=== PATIENT | female | born 1965 | race Caucasian/White ===

== ENCOUNTER 2018-03-02 18:43 | Emergency (ER) | payer OTHER ==
[2018-03-02] MEDS ORDERED: Rocephin 1000 MG INJ IM STA (19:11)
[2018-03-02] MEDS ORDERED: BACTRIM DS TABLET PO ONE ×2 (19:11→19:29)
[2018-03-02] MEDS ORDERED: solu-MEDROL 125 MG IM ONE (19:13)
[2018-03-02] MEDS ORDERED: solu-MEDROL 125 MG ONE (19:29)
--- NOTE | 2018-03-02 19:34 | ERPHSYRPT ---
- History of Present Illness Time Seen by Provider: 03/02/18 19:29 Source: patient, family Exam Limitations: no limitations Physician History: 52 y/o obese white female presents with redness and swelling posterior neck after being stung by an insect yesterday in the pool. tender to touch. no abscess or drainage but swelling worse. Timing/Duration: yesterday Quality: itchy, painful Severity: mild Location: other (post neck and between shoulders) Possible Causes: insect bite, insect sting Modifying Factors: Improves With: other (did not try anything) Associated Symptoms: change in skin texture, swelling/mass/lumps Allergies/Adverse Reactions: codeine Allergy (Verified 06/05/15 17:36) hydromorphone HCl [From Dilaudid] Allergy (Verified 06/05/15 17:36) morphine Allergy (Verified 06/05/15 17:36) Home Medications: Alprazolam 0.25 mg [xanAX 0.25 MG] 0.25 mg PO .PRN 06/05/15 [History] Fluoxetine HCl [Prozac] 20 mg PO DAILY 06/05/15 [History] Hx Tetanus, Diphtheria Vaccination/Date Given: Yes Hx Influenza Vaccination/Date Given: No Hx Pneumococcal Vaccination/Date Given: No - Review of Systems Constitutional: No Symptoms, No Fever, No Chills Eyes: No Symptoms, No Eye Pain, No Eye Redness, No Vision Changes Ears, Nose, & Throat: No Symptoms Respiratory: No Symptoms, No Cough, No Dyspnea, No Stridor, No Wheezing Cardiac: No Symptoms, No Chest Pain Abdominal/Gastrointestinal: No Symptoms, No Abdominal Pain, No Nausea, No Vomiting, No Diarrhea Genitourinary Symptoms: No Symptoms Musculoskeletal: No Symptoms Skin: Cellulitis, Induration, Pruritis Neurological: No Symptoms, No Dizziness, No Gait Changes, No Headache Psychological: No Symptoms Endocrine: No Symptoms Hematologic/Lymphatic: No Symptoms - Past Medical History Pertinent Past Medical History: Yes Neurological History: Stroke ENT History: No Pertinent History Cardiac History: No Pertinent History Respiratory History: No Pertinent History Endocrine Medical History: No Pertinent History Musculoskeletal History: No Pertinent History GI Medical History: GERD, Hernia History: No Pertinent History Psycho-Social History: Anxiety, Depression Female Reproductive Disorders: No Pertinent History - Past Surgical History Past Surgical History: Yes Neuro Surgical History: No Pertinent History Cardiac: No Pertinent History Respiratory: No Pertinent History Gastrointestinal: Cholecystectomy Female Surgical History: Section, Hysterectomy - Social History Smoking Status: Current every day smoker (has transitioned to E cigs in the last 2 weeks) Exposure to second hand smoke: Yes Drug Use: none Patient Lives Alone: No - Physical Exam General Appearance: no apparent distress, alert, No mild distress, No moderate distress, No severe distress, No anxiety Eye Exam: PERRL/EOMI, eyes nml inspection Ears, Nose, Throat Exam: normal ENT inspection Neck Exam: supple, full range of motion, other (posterior neck with redness) Respiratory Exam: normal breath sounds, lungs clear, airway intact, No chest tenderness, No respiratory distress, No diminished breath sounds, No accessory muscle use, No wheezing, No stridor Cardiovascular Exam: regular rate/rhythm, normal heart sounds, normal peripheral pulses Gastrointestinal/Abdomen Exam: soft, normal bowel sounds, No tenderness, No guarding, No rebound Pelvic Exam: not done Rectal Exam: deferred Back Exam: other (see neck above otherwise nl) Extremity Exam: normal inspection, normal range of motion, pelvis stable Neurologic Exam: alert, oriented x 3, cooperative, buckle assembler II-XII nml as tested, normal mood/affect, nml cerebellar function, nml station & gait Skin Exam: other (see neck above) SpO2 Interpretation: normal Oxygen Delivery: Room Air - Course Nursing assessment & vital signs reviewed: Yes Ordered Tests: Medication Summary Generic Name Dose Route Start Last Admin Trade Name Freq PRN Reason Stop Dose Admin Ceftriaxone Sodium mg 03/02/18 19:11 Rocephin 1000 Mg Inj IM 03/02/18 19:12 STAT STA Discontinued Medications Generic Name Dose Route Start Last Admin Trade Name Freq PRN Reason Stop Dose Admin Methylprednisolone Sodium Succinate 125 mg 03/02/18 19:13 Solu-Medrol 125 Mg IM 03/02/18 19:14 STAT ONE Trimethoprim/Sulfamethoxazole 1 tab 03/02/18 19:11 Bactrim Ds Tablet PO 03/02/18 19:12 STAT ONE - Progress Progress: unchanged Counseled pt/family regarding: diagnosis, need for follow-up - Departure Time of Disposition: 19:37 Departure Disposition: Home Clinical Impression: Cellulitis Condition: Stable Critical Care Time: No Referrals: TOÑO BRASWELL [Primary Care Provider] - Additional Instructions: keep site clean and dry. warm compresses 2 to 3 times daily. not directly on skin. follow up with primary doctor for persistent symptoms. return to ER for worsening symptoms Prescriptions: Smz/Tmp Ds Tablet [Bactrim Ds Tablet] 1 udtab PO BID #14 tablet
[2018-03-02 20:04] VITALS: BP 100/54; PULSE 84; O2SAT 96
== END 2018-03-02 20:04 | disposition home or self-care (01) ==
LOC: ED 18:43
DX: L03.221 Cellulitis of neck (principal); S10.96XA Insect bite of unspecified part of neck, initial encounter; W57.XXXA Bitten or stung by nonvenomous insect and other nonvenomous arthropods, initial encounter; Y93.11 Activity, swimming
CPT/HCPCS: 96372; 99283; J2930; A9270-GY

== ENCOUNTER 2021-12-18 05:47 | Day surgery (SDC) | payer OTHER ==
[2021-12-18] MEDS ORDERED: Lactated Ringers 1,000 ML IV SCH (06:30)
[2021-12-18] MEDS ORDERED: DIPRIVAN 200 MG/20 ML IV ONE (07:59)
[2021-12-18] MEDS ORDERED: Xylocaine-Mpf 2% 5 Ml Vial ONE (07:59)
[2021-12-18 09:10] VITALS: BP 130/8; PULSE 60; O2SAT 96
--- NOTE | 2021-12-18 09:35 | OP ---
SURGERY DATE/TIME: 12/18/2021 0757 PREOPERATIVE DIAGNOSIS: Screening colonoscopy. POSTOPERATIVE DIAGNOSES: 1) Sigmoid colon polyp. 2) Anal warts. PROCEDURE: Colonoscopy. SURGEON: Damian Loera M.D. ANESTHESIA: MAC by Andry Adams CRNA. ESTIMATED BLOOD LOSS: Minimal. SPECIMENS: Hot forceps polypectomy from the sigmoid colon. DESCRIPTION OF PROCEDURE: After informed written consent was obtained, the patient was taken to the endoscopy suite. She was placed in left lateral decubitus position. Anesthesia was titrated to desired level of consciousness. Digital rectal exam was performed and showed extensive anal warts. No internal lesions. Normal sphincter tone. The scope was inserted into the rectum and sequentially the entire colonic mucosa was traversed. The level of cecum was reached and verified with direct visualization of the ileocecal valve. Upon withdrawal careful mucosal inspection revealed no gross abnormalities until there was a small sessile polyp in the sigmoid colon which was grasped with forceps, cauterized and removed in its entirety with good hemostasis and complete removal of the lesion. Prior to withdrawal retroflexion showed no internal lesions. The scope was removed. The patient was transferred to the recovery room in good condition. She was advised to follow up in a week for pathology results.
== END 2021-12-18 09:10 | disposition home or self-care (01) ==
LOC: SDC 05:47
PROVIDERS: ATTEND Family Medicine
DX: Z12.11 Encounter for screening for malignant neoplasm of colon (principal); K63.5 Polyp of colon; A63.0 Anogenital (venereal) warts
CPT/HCPCS: J2704

== ENCOUNTER 2023-03-01 17:23 | Emergency (ER) | payer OTHER ==
--- NOTE | 2023-03-01 17:26 | ERPHSYRPT ---
- History of Present Illness Time Seen by Provider: 03/01/23 17:26 Source: patient Exam Limitations: no limitations Physician History: This is a 57-year-old white female patient of nurse practitioner Mariely Negrete. The patient has had right shoulder pain for quite some time. She has had an x-ray of her right shoulder as well as a CT scan/MRI of her right shoulder as an outpatient per her report. On Wednesday, prior to this evaluation the patient had worsening pain without acute trauma or falls. She contacted nurse practitioner Penelope but could not obtain appointment for a few more weeks. Therefore she came to the emergency department. Her primary issue is pain control. Patient denies chest pain and she denies shortness of breath. Occurred: days ago (No fall or new injury) Method of Injury: other Quality: constant, aching Severity of Pain-Max: mild (To moderate) Severity of Pain-Current: mild (To moderate) Extremities Pain Location: shoulder: right Associated Symptoms: none, neck pain (Chronic), No chest discomfort, No chest pain, No dyspnea, No short of breath Allergies/Adverse Reactions: hydromorphone HCl [From Dilaudid] Allergy (Mild, Verified 03/01/23 17:28) codeine Allergy (Verified 03/01/23 17:28) morphine Allergy (Verified 03/01/23 17:28) Home Medications: ALPRAZolam 0.25 MG [xanAX 0.25 MG] 0.25 mg PO .PRN 06/05/15 [History] Meloxicam [Mobic] 15 mg PO DAILY 12/16/21 [History] Sertraline HCl 50 mg [Zoloft 50 mg Tablet] 75 mg PO DAILY 12/16/21 [History] Hx Tetanus, Diphtheria Vaccination/Date Given: No Hx Influenza Vaccination/Date Given: No Hx Pneumococcal Vaccination/Date Given: No Travel Risk - International Travel Have you traveled outside of the country in past 3 weeks: No - Coronavirus Screening Are you exhibiting any of the following symptoms?: No Close contact with a COVID-19 positive Pt in past 14-21 Days: No - Review of Systems Constitutional: No Symptoms Eyes: No Symptoms Ears, Nose, & Throat: No Symptoms Respiratory: No Symptoms Cardiac: No Symptoms Abdominal/Gastrointestinal: No Symptoms Genitourinary Symptoms: No Symptoms Musculoskeletal: Joint Pain (Right shoulderacute on chronic) Skin: No Symptoms Neurological: No Symptoms Psychological: No Symptoms Endocrine: No Symptoms Hematologic/Lymphatic: No Symptoms Immunological/Allergic: No Symptoms All Other Systems: Reviewed and Negative - Past Medical History Pertinent Past Medical History: Yes Neurological History: TIA ENT History: No Pertinent History Cardiac History: No Pertinent History Respiratory History: No Pertinent History Endocrine Medical History: No Pertinent History Musculoskeletal History: Rheumatoid Arthritis GI Medical History: GERD, Hernia History: No Pertinent History Psycho-Social History: Anxiety, Depression Female Reproductive Disorders: No Pertinent History Other Medical History: B knee RA, R heel fx, R knee scope, L rotator cuff repair - Past Surgical History Past Surgical History: Yes Neuro Surgical History: No Pertinent History Cardiac: No Pertinent History Respiratory: No Pertinent History Gastrointestinal: Cholecystectomy Genitourinary: No Pertinent History Musculoskeletal: No Pertinent History Female Surgical History: Section, Hysterectomy - Social History Smoking Status: Current every day smoker How long have you smoked: age 20 Exposure to second hand smoke: Yes Drug Use: none Patient Lives Alone: No - Nursing Vital Signs Nursing Vital Signs: Initial Vital Signs Temperature 97.6 F 03/01/23 17:29 Pulse Rate 85 03/01/23 17:29 Respiratory Rate 18 03/01/23 17:29 Blood Pressure 124/73 03/01/23 17:29 O2 Sat by Pulse Oximetry 98 03/01/23 17:29 Pain Scale Pain Intensity 10 - Physical Exam General Appearance: no apparent distress, alert, anxiety Eyes, Ears, Nose, Throat Exam: normal ENT inspection, moist mucous membranes Neck Exam: normal inspection, non-tender, supple, full range of motion Cardiovascular/Respiratory Exam: chest non-tender, normal breath sounds, regular rate/rhythm, heart sounds normal, no respiratory distress Abdominal Exam: non-tender Back Exam: normal inspection, normal range of motion, No CVA tenderness Shoulder Exam: normal inspection, no evidence of injury, normal ROM, soft tissue tenderness (With movement) Elbow/Forearm Exam: normal inspection, non-tender, no evidence of injury, normal ROM Wrist Exam: normal inspection, non-tender, no evidence of injury, normal ROM Hand Exam: normal inspection, non-tender, no evidence of injury, normal ROM Neuro/Tendon Exam: normal sensation, normal motor functions, normal tendon func tions, responds to pain, no evidence tendon injury Mental Status Exam: alert, oriented x 3, cooperative Skin Exam: normal color, warm, dry SpO2 Interpretation: normal O2 Delivery: Room Air - Course Nursing assessment & vital signs reviewed: Yes - Progress Progress: pain not gone completely Progress Note: 03/01/23 17:47 This patient's medical issue is 1 of low complexity. I do not feel that this patient requires any new radiographic studies. She has been followed for this issue as an outpatient. Her nurse practitioner also staffs our [facility] orthopedic clinic. Patient can be seen on 03/02/2023 in this walk-in clinic between the hours of 8 AM and 10 AM. We will provide her with injections of steroid, muscle relaxant and Percocet 5/325 for pain control overnight. She will then follow-up at that clinic for further evaluation and management. I do not feel the patient has an emergent issue. I do not feel she has any cardiac issue based on the history, physical findings and complaints Counseled pt/family regarding: diagnosis, need for follow-up Medical Desision Making - Diagnostic Testing Diagnostic test were ordered, analyzed, and reviewed by me: No - Risk of complications Low Risk: Low risk of morbidity from additional dx testing or treatment - Departure Departure Disposition: Home Clinical Impression: Chronic right shoulder pain Condition: Stable Critical Care Time: No Referrals: MARIVEL MISHRA MD [Primary Care Provider] - Follow up/PCP as directed Additional Instructions: Continue your other medications as prescribed. Follow-up at nurse practitioner Blake[facility] orthopedic clinic here at [facility] at 8 AM tomorrow, 03/02/2023. It is a walk-in clinic and you do not need an appointment
[2023-03-01 17:36] VITALS: BP 124/73; PULSE 85; RESP 18; TEMP 97.6; O2SAT 98
[2023-03-01] MEDS ORDERED: PERCOCET TABLET 5/325MG PO STA (17:41)
[2023-03-01] MEDS ORDERED: solu-MEDROL 125 MG, Sterile H2O 10 ml 2 ML IM ONE ×2 (17:43)
[2023-03-01] MEDS ORDERED: Norflex 60 MG/2 ML IM ONE (17:43)
[2023-03-01] MEDS ORDERED: Sterile H2O 10 ml IJ ONE (17:57)
[2023-03-01] MEDS ORDERED: solu-MEDROL ONE (17:58)
[2023-03-01] MEDS ORDERED: Norflex 60 MG/2 ML ONE (17:58)
[2023-03-01] MEDS ORDERED: PERCOCET TABLET 5/325MG ONE (17:58)
== END 2023-03-01 18:12 | disposition home or self-care (01) ==
LOC: ED 17:23
DX: G89.29 Other chronic pain (principal); M25.511 Pain in right shoulder; Z79.899 Other long term (current) drug therapy; Z72.0 Tobacco use
CPT/HCPCS: 96372; 99283; J2360; J2930; A9270-GY